=== PATIENT | male | born 1940 | race Caucasian/White ===

== ENCOUNTER 2016-07-26 09:38 | Inpatient (IN) | payer BC ==
--- NOTE | ~2016-07-26 | DS ---
Discharge Summary [facility] [address] [place]. [address] NAME: AARON LUONG SR : 38 STATUS : DIS IN PAT#: [id number] AGE: 76 ADM/REG DATE : 07/26/16 MR#: [id number] REPORT SERV DATE: 08/07/16 DICTATED BY: SEGUNDO YOUSIF DATE: 08/06/16 REPORT STATUS : Draft TRANSCRIBED BY: BENITEZ DATE: 08/06/16 Data Collection from hospitalization DISCHARGE DIAGNOSES: 1. Acute on chronic systolic congestive heart failure. 2. Hypertension. 3. Diabetes. 4. Coronary artery disease. 5. Ischemic cardiomyopathy. 6. Coronary artery disease. CONSULTATIONS: Martín Astudillo MD PROCEDURES PERFORMED: None. MEDICATIONS: Coreg 25 mg twice a day, NovoLog injection insulin as instructed, Lantus 20 units subcutaneously daily, Protonix 40 mg daily, K-Dur 30 mEq twice a day, Zocor 40 mg at bedtime, Demadex 80 mg twice a day, and Coumadin 3 mg at bedtime. He was instructed not to continue Prinivil, Voltaren, Glucotrol, niacin, or aspirin. CONDITION AT DISCHARGE: Stable. DISPOSITION: The patient was discharged home to be followed by home health care on a low- cholesterol, low-sodium, 1800-calorie cardiac/diabetic diet with no concentrated carbohydrates and activities as instructed. He would follow up with me on 08/16/2016. He would follow up with Dr. Vern Brand on 08/07/2016. HOSPITAL COURSE: This is a 76-year-old man who has had persistent shortness of breath with minimal activity and some mild orthopnea. His right greater than left leg edema had increased. He has had no bleeding. He had no stroke or stroke-like symptoms. He had no chest pain or palpitations. The patient does have ischemic cardiomyopathy with an ejection fraction of 10% with apical thrombus. He has had bypass surgery twice. He had declined an AICD. He has been switched from Lasix to Demadex without improvement. He was admitted to the hospital at this time for further evaluation and treatment. Upon admission, his INR level was 2.6. Warfarin was continued. He was seen by Dr. Martín Astudillo regarding his lower extremity swelling. He has been asked to see the patient regarding his diabetic management. Creatinine level was 1.87. Echocardiogram had shown severe left ventricular dysfunction with apical akinesis. Apical thrombus was noted. Ejection fraction was 35.6. The patient had significant low blood glucose levels at home with home dose ranging from 30 to 50 units of long-acting. We were going to significantly decrease this dose at this time with a diabetic diet, sliding scale insulin, and titrate to his needs. Upon arrival, his blood sugars were in the 60s, down to the 40s. He was minimally symptomatic. He has had episodes where he was almost comatose in April. He would need close monitoring with sliding scale. His appetite was still good at this time. He was placed on a diabetic diet. He has a cellulitis with rapid increase in erythema and pallor. Unasyn was being provided. Diuresis was going to be started. He has acute systolic heart failure and is on IV diuresis. He was already on HERNANDO inhibitor and beta-jamir and statin Discharge Summary [address] [address] NAME: AARON LUONG : 38 STATUS : DIS IN PAT#: [id number] AGE: 76 ADM/REG DATE : 07/26/16 MR#: [id number] REPORT SERV DATE: 08/07/16 DICTATED BY: SEGUNDO YOUSIF DATE: 08/06/16 REPORT STATUS : Draft TRANSCRIBED BY: BENITEZ DATE: 08/06/16 and aspirin per his primary care physician. He would need volume restriction and heart failure education at discharge. He is on HERNANDO inhibitor and beta-jamir for his hypertension. There is a question of chronic kidney disease. We hoped that he would have improved renal function with improved cardiac function. The patient requested to be a DNR/DNI. The following day, he reported that his dyspnea was slightly improved. IV Lasix continued. He said he was feeling okay. Levemir was increased. Antibiotics were stopped. HERNANDO inhibitor was held. INR level was 2.9. On 07/28/2016, he complained of some cramping pain in his lower extremities. He also complained of some flushing and needle-like discomfort from niacin. Lower extremity edema was improving. Lasix was continued. On 07/29/2016, his shortness of breath had resolved. He did have some epistaxis that morning. Creatinine level was 1.45. Levemir was continued. O2 would be humidified as needed. He underwent diabetes education. Levemir had been increased. Ancef was stopped. The next day, he said he was feeling better. He denied dyspnea on exertion, orthopnea, or PND. He was in a sinus rhythm. Discharge planning was performed. On 07/31/2016, he said he felt much better. There was no orthopnea or PND. He had no chest pain. His lungs were clear. Discharge instructions were given. Due to his improved and stable condition, he was discharged home to be followed by home health care with the above-stated instructions. Information collected by: Ignacia Whiting I submit the above information as my discharge summary. ELIZABETH/BENITEZ Segundo Yousif M.D. / [id number] CC: Tamia Rosas MATTHEW J.
--- NOTE | ~2016-07-26 | CN ---
Consultation Report [facility] [address] [place]. [address] NAME: AARON LUONG SR : 38 STATUS : ADM IN PAT#: [id number] AGE: 76 ADM/REG DATE : 07/26/16 MR#: [id number] REPORT SERV DATE: 07/27/16 DICTATED BY: MIKO ROCHE DATE: 07/26/16 REPORT STATUS : Draft TRANSCRIBED BY: MODJv DATE: 07/26/16 CONSULTATION DATE OF CONSULTATION: CHIEF COMPLAINT: Lower extremity swelling. REASON FOR ADMISSION: CHF and cardiac thrombus. REASON FOR CONSULTATION: Diabetic management. HISTORY OF PRESENT ILLNESS: The patient is a very pleasant 76-year-old male with past medical history significant for extensive coronary artery disease with CABG redo x2, cardiomyopathy, CHF, who has declined AICD over the last three years, who presents after having multiple episodes of increased volume, bilateral lower extremity edema and has had progressive redness in bilateral lower extremities, who reports that swelling has continued to increase. The patient, although has not had loss of appetite or significant dyspnea on exertion, has noted that he was hospitalized and had three pounds diuresis, but son, Mr. Arturo Luong, who is at bedside reports that when he went home, he was gaining approximately almost a pound a day for next few days and was concerned that due to his diabetes, he was beginning to have cellulitis and infection in his legs because of the swelling. The patient has had increased swelling in bilateral lower extremities. He has had increased weight gain, has been modified on diuretics, but has not been on significant fluid restrictions that he can recall. He does have increased tightness in belly, legs bilaterally up to abdomen. He has had prior surgical tear-down of his lower extremities due to his prior CABG and orthopedic work which has left him with right side greater than left side asymmetrical edema. He has had this ultrasound and was negative for blood clots in past per family approximately three weeks ago. The patient is currently being admitted for optimization of volume overload from cardiac function and monitoring of INR for cardiac thrombus. In addition to this, when discussed with the patient about his diabetes, he does report that he has had significant lows including almost comatose state when he was in the 30s and became cold, clammy, and unresponsive as recent as April. With labs taken this morning, he had not taken his frosted flakes and blood sugars were noted to be in the 60s and 50s and on arrival, he has been in the 49 while here, the patient has what appears to be an irregular blood sugars scaling system as he takes anywhere from 30 to 50 units of long- acting, no sliding scale at this time and p.o. medications. The patient declines having any kidney disease, but also was noted to have elevated creatinine on arrival. The patient reports no loss of appetite or significant coughing. PAST MEDICAL HISTORY: Noted for CHF, diabetes, coronary artery disease, cardiac thrombus, hypertension. SURGICAL HISTORY: Two times hernia, two times CABG, right shoulder repair, gallbladder, appendectomy, orthopedic surgery. Consultation Report [address] [place]. [address] NAME: AARON LUONG : 38 STATUS : ADM IN PAT#: [id number] AGE: 76 ADM/REG DATE : 07/26/16 MR#: [id number] REPORT SERV DATE: 07/27/16 DICTATED BY: MIKO ROCHE DATE: 07/26/16 REPORT STATUS : Draft TRANSCRIBED BY: BENITEZ DATE: 07/26/16 SOCIAL HISTORY: No smoking, alcohol, or illicits. FAMILY HISTORY: Noted for significant coronary artery disease in multiple family members, brothers, children, and parents. Son reports that there is genetic component that has been found in their family. Also having premature coronary artery disease. ALLERGIES: PENICILLIN. HOME MEDICATIONS: Aspirin, Coreg, Voltaren, Glucotrol, Lantus, Prinivil, niacin, potassium tablets, simvastatin, Demadex, and Coumadin. PHYSICAL EXAMINATION: VITAL SIGNS: The patient's blood pressure 108/68 to 160/112, respirations 18, pulse 63, temperature 95.9. GENERAL: No acute distress. Elderly. NEURO: Hard of hearing. Sensation is still grossly intact. Symmetrical strength. Ambulatory with normal gait. Symmetrical strength in hands. CHEST: Equal chest expansion. Mild increased AP diameter. NECK: Right-sided JVD pronounced. ENT: Nares patent. Tongue midline. Moist mucous membranes. EYES: No scleral icterus. EOMI. RESPIRATORY: Clear to auscultation upper lung nolasco, mild rales in lower lung nolasco. Chest, systolic ejection murmur approximately 2/3 bilateral edema up to abdomen. Pulses difficult to palpate but palpable due to edema. Extremities still warm. Cap refill approximately 2 seconds. ABDOMEN: Central obesity, no fluid wave. But mildly distended. EXTREMITIES: Moves all extremities x4. Does have bilateral edema and erythema on right greater the left side lower extremities when compared to the pictures which son has on phone has been progressive. SKIN: Warm and dry with bilateral erythema, pallor on lower extremities. Small micro petechiae blistering on right leg from knee down. PSYCH: Appropriate mood and affect. LYMPH: No cervical or supraclavicular lymphadenopathy. PERTINENT LABORATORY DATA: Blood glucose ranging from 49 to 238. BNP 990.4. Creatinine 1.87. CBC: WBC count 9.0, H and H 14 and 43.7, platelets 126, INR 2.6. An echocardiogram echoed severe left ventricular dysfunction with apical akinesis. Apical thrombus noted. EF of 35.6. EKG, none currently on chart. ASSESSMENT: 1. Insulin-dependent diabetes. 2. Possible likely cellulitis. 3. congestive heart failure with depressed ejection fraction acute exacerbation. 4. Atrial thrombus. Consultation Report [address] [place]. [address] NAME: AARON LUONG : 38 STATUS : ADM [facility]#: [id number] AGE: 76 ADM/REG DATE : 07/26/16 MR#: [id number] REPORT SERV DATE: 07/27/16 DICTATED BY: MIKO ROCHE DATE: 07/26/16 REPORT STATUS : Draft TRANSCRIBED BY: BENITEZ DATE: 07/26/16 5. Hypertension. 6. Possible chronic kidney disease, unknown baseline. 7. Thrombocytopenia. 8. DNR/DNI. PLAN: 1. Diabetes type 2. The patient has significant frequent lows at home with home dose ranging from 30 to 50 units of long-acting. We will significantly decrease this dose at this time with diabetic diet, sliding scale insulin, and titrate to needs. The patient's morning blood sugars are in 60s upon arrival, down to 40s. The patient was minimally symptomatic. He has had episodes where he was almost comatose in April and will need close monitoring with sliding scale. The patient's appetite still well at this time. We will place on diabetic diet and close monitoring. Again blood sugars a.c. at bedtime and/or 200. 2. Cellulitis, rapid increase in erythema and pallor. Antibiotics with Unasyn and diuresis, possible reactive, but will need to monitor. 3. Acute systolic heart failure, on IV diuresis, he is already on HERNANDO inhibitor and beta jamir and statin, aspirin per primary. Will need volume restriction and heart failure education at discharge. 4. Atrial thrombus, on warfarin therapeutic. 5. Hypertension, HERNANDO inhibitor and beta jamir. 6. Questionable CKD. Monitor in the presence of diuretics, lisinopril, unclear baseline. Possible component of cardiorenal perfusion, hopeful improved renal function with improved cardiac function. 7. Thrombocytopenia. Monitor as the patient is mildly thrombocytopenic with platelets in the 120s. Monitor CBC while the patient is on warfarin, does have mild micro petechiae, erythema sign in lower extremities. Extensive discussion as the patient brought up, he would request DNR/DNI and would like his wishes reflected. I have discussed in depth or in detail the POLST form and discussed with family, Mr. Arturo Luong, who is at bedside, who reports that these are consistent with the patient's beliefs and wishes. The patient DNR/DNI reflected on POLST form and order placed. I have updated primary team on-call, Dr. Sales of these orders that the patient has expressed to team. Greater than an hour and a half of I bedside with the patient and family for interview, evaluation, discussion, and education. All questions were answered to the patient's family. Care to be resumed by primary team and medicine team also in a.m. Thank you, Dr. Yousif for allowing us to assist in the care of this wonderful patient. DDN/MODL Miko Roche MD Consultation Report [address] [place]. [address] NAME: AARON LUONG : 38 STATUS : ADM [facility]#: [id number] AGE: 76 ADM/REG DATE : 07/26/16 MR#: [id number] REPORT SERV DATE: 07/27/16 DICTATED BY: MIKO ROCHE DATE: 07/26/16 REPORT STATUS : Draft TRANSCRIBED BY: BENITEZ DATE: 07/26/16 / [id number] CC: Akhil Yousif M.D.
[2016-07-26 08:35] LABS: BUN (BLOOD UREA NITROGEN) 41 MG/DL (6-23); CALCIUM, SERUM 8.4 MG/DL (8.5-10.4); CHLORIDE, SERUM 107 MMOL/L (96-112); CO2 (CARBON DIOXIDE) 31 MMOL/L (24-34); CREATININE 1.82 MG/DL (0.70-1.30); GFR AFRICAN AMERICAN 40 ML/MIN (>=60); GFR NON AFRICAN AMERICAN 35 ML/MIN (>=60); GLUCOSE, SERUM 67 MG/DL (60-99); POTASSIUM, SERUM 3.8 MMOL/L (3.5-5.3); SODIUM, SERUM 145 MMOL/L (135-148)
[2016-07-26 10:29] LABS: BASOPHILS 0.2 %; BASOPHILS ABSOLUTE 0.02 10/3/uL (0.0-0.16); EOSINOPHILS 1.6 %; EOSINOPHILS ABSOLUTE 0.14 10/3/uL (0.0-0.53); HEMATOCRIT 43.7 % (40.0-51.0); IMMATURE GRANULOCYTES 0.2 %; IMMATURE GRANULOCYTES ABSOLUTE 0.02 10/3/uL (0.0-0.11); LYMPHOCYTES 12.3 %; MEAN CORPUSCULAR HEMOGLOB 29.5 pg (26.0-34.0); MEAN PLATELET VOLUME 11.7 fL (9.2-13.0); MONOCYTES 11.5 %; MONOCYTES ABSOLUTE 1.03 10/3/uL (0.21-1.20); NEUTROPHILS 74.2 %; NEUTROPHILS ABSOLUTE 6.64 10/3/uL (2.02-8.40); PLATELET COUNT 126 10/3/uL (150-400); RBC DISTRIBUTION WIDTH 14.3 % (12.0-16.0); RED CELL COUNT 4.75 10/6/uL (4.7-6.1)
[2016-07-26 10:30] LABS: MANUAL DIFF NO %
[2016-07-26 10:34] LABS: INTERNATIONAL NORMAL RATI 2.6 UNITS (-); PROTIME (NOT ORD) 27.3 SEC (12.0-14.5)
[2016-07-26 10:40] LABS: BUN (BLOOD UREA NITROGEN) 41 MG/DL (6-23); CALCIUM, SERUM 8.5 MG/DL (8.5-10.4); CHLORIDE, SERUM 103 MMOL/L (96-112); CO2 (CARBON DIOXIDE) 29 MMOL/L (24-34); CREATININE 1.87 MG/DL (0.70-1.30); GFR AFRICAN AMERICAN 39 ML/MIN (>=60); GFR NON AFRICAN AMERICAN 34 ML/MIN (>=60); GLUCOSE, SERUM 58 MG/DL (60-99); SODIUM, SERUM 142 MMOL/L (135-148)
[2016-07-26] MEDS ORDERED: PRIN20 PO (16:00)
[2016-07-26] MEDS ORDERED: ZOCOR40 PO (16:00)
[2016-07-26] MEDS ORDERED: COREG25 PO (16:00)
[2016-07-26] MEDS ORDERED: VOLT75 PO (16:01)
[2016-07-26] MEDS ORDERED: COUMADIN3 MG PO (16:01)
[2016-07-26] MEDS ORDERED: DEMA20 PO (16:01)
[2016-07-26] MEDS ORDERED: LANTUS SC (16:02)
[2016-07-26] MEDS ORDERED: NIACIN 500 PO (16:03)
[2016-07-26] MEDS ORDERED: ASAB PO (16:03)
[2016-07-26] MEDS ORDERED: GLUCOTROL5 PO (16:03)
[2016-07-26] MEDS ORDERED: K-TABS10 MEQ PO (16:04)
[2016-07-27 06:26] LABS: BASOPHILS 0.4 %; BASOPHILS ABSOLUTE 0.03 10/3/uL (0.0-0.16); EOSINOPHILS 2.1 %; EOSINOPHILS ABSOLUTE 0.16 10/3/uL (0.0-0.53); HEMATOCRIT 38.5 % (40.0-51.0); HEMOGLOBIN 12.5 g/dL (13.6-17.8); IMMATURE GRANULOCYTES 0.1 %; IMMATURE GRANULOCYTES ABSOLUTE 0.01 10/3/uL (0.0-0.11); LYMPHOCYTES 15.4 %; LYMPHOCYTES ABSOLUTE 1.16 10/3/uL (0.67-4.30); MANUAL DIFF NO %; MEAN CORPUS HGB CONC 32.5 g/dL (32.0-36.0); MEAN CORPUSCULAR HEMOGLOB 29.8 pg (26.0-34.0); MEAN CORPUSCULAR VOLUME 91.9 fL (80-100); MEAN PLATELET VOLUME 11.2 fL (9.2-13.0); MONOCYTES ABSOLUTE 0.98 10/3/uL (0.21-1.20); NEUTROPHILS ABSOLUTE 5.21 10/3/uL (2.02-8.40); PLATELET COUNT 119 10/3/uL (150-400); RBC DISTRIBUTION WIDTH 14.2 % (12.0-16.0); RED CELL COUNT 4.19 10/6/uL (4.7-6.1); WHITE BLOOD CELLS 7.6 10/3/uL (4.5-10.5)
[2016-07-27 06:32] LABS: INTERNATIONAL NORMAL RATI 2.9 UNITS (-); PROTIME (NOT ORD) 29.9 SEC (12.0-14.5)
[2016-07-27 06:34] LABS: CALCIUM, SERUM 8.3 MG/DL (8.5-10.4); CHLORIDE, SERUM 105 MMOL/L (96-112); CO2 (CARBON DIOXIDE) 28 MMOL/L (24-34); GFR AFRICAN AMERICAN 36 ML/MIN (>=60); GFR NON AFRICAN AMERICAN 31 ML/MIN (>=60); POTASSIUM, SERUM 4.2 MMOL/L (3.5-5.3); SODIUM, SERUM 141 MMOL/L (135-148)
[2016-07-27 06:36] LABS: BUN (BLOOD UREA NITROGEN) 49 MG/DL (6-23); GLUCOSE, SERUM 132 MG/DL (60-99)
[2016-07-28 05:55] LABS: INTERNATIONAL NORMAL RATI 2.6 UNITS (-); PROTIME (NOT ORD) 27.2 SEC (12.0-14.5)
[2016-07-28 11:38] LABS: BASOPHILS 0.4 %; BASOPHILS ABSOLUTE 0.03 10/3/uL (0.0-0.16); EOSINOPHILS 2.1 %; EOSINOPHILS ABSOLUTE 0.16 10/3/uL (0.0-0.53); HEMATOCRIT 39.1 % (40.0-51.0); HEMOGLOBIN 12.5 g/dL (13.6-17.8); IMMATURE GRANULOCYTES 0.1 %; IMMATURE GRANULOCYTES ABSOLUTE 0.01 10/3/uL (0.0-0.11); LYMPHOCYTES 12.5 %; LYMPHOCYTES ABSOLUTE 0.95 10/3/uL (0.67-4.30); MEAN CORPUSCULAR HEMOGLOB 28.9 pg (26.0-34.0); MEAN CORPUSCULAR VOLUME 90.3 fL (80-100); MEAN PLATELET VOLUME 11.8 fL (9.2-13.0); MONOCYTES 17.8 %; MONOCYTES ABSOLUTE 1.35 10/3/uL (0.21-1.20); NEUTROPHILS 67.1 %; PLATELET COUNT 143 10/3/uL (150-400); RBC DISTRIBUTION WIDTH 14.4 % (12.0-16.0); RED CELL COUNT 4.33 10/6/uL (4.7-6.1); WHITE BLOOD CELLS 7.6 10/3/uL (4.5-10.5)
[2016-07-28 11:41] LABS: MANUAL DIFF NO %
[2016-07-28 11:52] LABS: BUN (BLOOD UREA NITROGEN) 41 MG/DL (6-23); CALCIUM, SERUM 8.9 MG/DL (8.5-10.4); CHLORIDE, SERUM 100 MMOL/L (96-112); CO2 (CARBON DIOXIDE) 28 MMOL/L (24-34); CREATININE 1.75 MG/DL (0.70-1.30); GFR AFRICAN AMERICAN 42 ML/MIN (>=60); GFR NON AFRICAN AMERICAN 36 ML/MIN (>=60); GLUCOSE, SERUM 118 MG/DL (60-99); POTASSIUM, SERUM 4.4 MMOL/L (3.5-5.3); SODIUM, SERUM 141 MMOL/L (135-148)
[2016-07-29 06:48] LABS: BASOPHILS 0.3 %; BASOPHILS ABSOLUTE 0.02 10/3/uL (0.0-0.16); EOSINOPHILS 3.5 %; EOSINOPHILS ABSOLUTE 0.22 10/3/uL (0.0-0.53); HEMATOCRIT 37.6 % (40.0-51.0); HEMOGLOBIN 12.1 g/dL (13.6-17.8); IMMATURE GRANULOCYTES 0.2 %; IMMATURE GRANULOCYTES ABSOLUTE 0.01 10/3/uL (0.0-0.11); LYMPHOCYTES 16.9 %; LYMPHOCYTES ABSOLUTE 1.07 10/3/uL (0.67-4.30); MEAN CORPUS HGB CONC 32.2 g/dL (32.0-36.0); MEAN CORPUSCULAR HEMOGLOB 28.6 pg (26.0-34.0); MEAN CORPUSCULAR VOLUME 88.9 fL (80-100); MEAN PLATELET VOLUME 10.9 fL (9.2-13.0); MONOCYTES 16.1 %; MONOCYTES ABSOLUTE 1.02 10/3/uL (0.21-1.20); NEUTROPHILS ABSOLUTE 3.99 10/3/uL (2.02-8.40); PLATELET COUNT 137 10/3/uL (150-400); RBC DISTRIBUTION WIDTH 14.2 % (12.0-16.0); RED CELL COUNT 4.23 10/6/uL (4.7-6.1); WHITE BLOOD CELLS 6.3 10/3/uL (4.5-10.5)
[2016-07-29 06:53] LABS: BUN (BLOOD UREA NITROGEN) 33 MG/DL (6-23); CALCIUM, SERUM 8.7 MG/DL (8.5-10.4); CHLORIDE, SERUM 102 MMOL/L (96-112); CO2 (CARBON DIOXIDE) 31 MMOL/L (24-34); CREATININE 1.45 MG/DL (0.70-1.30); GFR AFRICAN AMERICAN 53 ML/MIN (>=60); GFR NON AFRICAN AMERICAN 46 ML/MIN (>=60); GLUCOSE, SERUM 75 MG/DL (60-99); INTERNATIONAL NORMAL RATI 2.3 UNITS (-); POTASSIUM, SERUM 3.6 MMOL/L (3.5-5.3); PROTIME (NOT ORD) 24.9 SEC (12.0-14.5); SODIUM, SERUM 140 MMOL/L (135-148)
[2016-07-29 06:55] LABS: MANUAL DIFF NO %
[2016-07-30 05:25] LABS: PROTIME (NOT ORD) 22.1 SEC (12.0-14.5)
[2016-07-30 05:38] LABS: BUN (BLOOD UREA NITROGEN) 33 MG/DL (6-23); CALCIUM, SERUM 8.7 MG/DL (8.5-10.4); CHLORIDE, SERUM 100 MMOL/L (96-112); CO2 (CARBON DIOXIDE) 30 MMOL/L (24-34); CREATININE 1.42 MG/DL (0.70-1.30); GFR AFRICAN AMERICAN 54 ML/MIN (>=60); GFR NON AFRICAN AMERICAN 47 ML/MIN (>=60); GLUCOSE, SERUM 83 MG/DL (60-99); POTASSIUM, SERUM 3.8 MMOL/L (3.5-5.3); SODIUM, SERUM 138 MMOL/L (135-148)
[2016-07-31 07:02] LABS: INTERNATIONAL NORMAL RATI 1.7 UNITS (-); PROTIME (NOT ORD) 19.6 SEC (12.0-14.5)
[2016-07-31 07:07] LABS: CHLORIDE, SERUM 95 MMOL/L (96-112); CO2 (CARBON DIOXIDE) 31 MMOL/L (24-34); CREATININE 1.43 MG/DL (0.70-1.30); GFR AFRICAN AMERICAN 54 ML/MIN (>=60); GFR NON AFRICAN AMERICAN 47 ML/MIN (>=60); POTASSIUM, SERUM 3.7 MMOL/L (3.5-5.3); SODIUM, SERUM 137 MMOL/L (135-148)
[2016-07-31 07:08] LABS: BUN (BLOOD UREA NITROGEN) 29 MG/DL (6-23); GLUCOSE, SERUM 108 MG/DL (60-99)
[2016-07-31] MEDS ORDERED: NOVOLOG SC ×2 (14:32→14:41)
[2016-07-31] MEDS ORDERED: KDUR20 PO (14:33)
[2016-07-31] MEDS ORDERED: DEMA20 PO (14:35)
[2016-07-31] MEDS ORDERED: NOVOPENMIX SC (14:38)
[2016-07-31] MEDS ORDERED: PROTONIX PO (14:42)
== END 2016-07-31 16:20 | disposition home health service (06) | DRG 291 ==
LOC: 5NO 09:38
PROVIDERS: Internal Medicine Cardiovascular Disease
DX: I13.0 Hypertensive heart and chronic kidney disease with heart failure and stage 1 through stage 4 chronic kidney disease, or unspecified chronic kidney disease (principal); I50.23 Acute on chronic systolic (congestive) heart failure; D69.6 Thrombocytopenia, unspecified; E11.9 Type 2 diabetes mellitus without complications; Z95.1 Presence of aortocoronary bypass graft; I25.10 Atherosclerotic heart disease of native coronary artery without angina pectoris; Z88.0 Allergy status to penicillin; Z79.82 Long term (current) use of aspirin; Z79.4 Long term (current) use of insulin; N18.9 Chronic kidney disease, unspecified; Z66 Do not resuscitate; I87.2 Venous insufficiency (chronic) (peripheral)
CPT/HCPCS: 36415; 80048; 82962; 83880; 85025; 85610; A9270-GY; C8924; G0463; J0690; J2260; Q9957